=== PATIENT | female | born 1980 | race Caucasian/White ===

== ENCOUNTER 2022-01-03 19:36 | Emergency (ER) | payer OTHER, SELFPAY ==
[2022-01-03 19:45] VITALS: BP 120/77; PULSE 104; RESP 14; TEMP 37.7; O2SAT 99
[2022-01-03 19:57] VITALS: BP 120/77; PULSE 104; RESP 14; TEMP 37.7; O2SAT 99
--- NOTE | 2022-01-03 20:46 | ED.WOUNDLAC ---
HPI - Wound/Laceration General Chief Complaint: Wound/Laceration Stated Complaint: Skin Sore/Fever Time Seen by Provider: 01/03/22 20:14 Source: patient and RN notes reviewed Mode of arrival: ambulatory Limitations: no limitations History of Present Illness HPI narrative: Patient presents today complaining of a 1 week history of a boil to her right buttock that has been worsening since onset. She started running a fever up to 102 2 days ago. Today she noted some serous drainage from a small hole. She has been taking Tylenol for her fever and sitting in some warm sitz bath's as well as using Pred 7 Neosporin. Denies history of boils, abscesses, history of staph infection or MRSA. After some questioning, patient states she has had a small bump in this area for many years. Related Data Home Medications Medication Instructions Recorded Confirmed alprazolam 0.5 mg PO TID 01/03/22 01/03/22 propranolol 10 mg PO TID 01/03/22 01/03/22 sertraline 100 mg PO DAILY 01/03/22 01/03/22 Allergies Allergy/AdvReac Type Severity Reaction Status Date / Time diphenhydramine Allergy Unknown Swelling Unverified 01/03/22 19:56 iodine Allergy Unknown Swelling Unverified 01/03/22 19:56 of Lip/Tongue/Throat Review of Systems Review of Systems: CONSTITUTIONAL: Denies body aches, fever, chills, or sweats. EYES: Denies visual changes, redness, or discharge. ENT: Denies rhinorrhea, congestion, sore throat, or otalgia. CARDIOVASCULAR: Denies chest pain, palpitations, or edema. RESPIRATORY: Denies cough or dyspnea. GASTROINTESTINAL: Denies abdominal pain, nausea, vomiting, or diarrhea. GENITOURINARY: Denies dysuria or hematuria. SKIN: Denies rash, itching, or wounds.+ Abscess to right buttock MUSCULOSKELETAL: Denies back pain, joint pain, or myalgia. NEUROLOGIC: Denies headache, numbness, tingling, or weakness. PSYCH: Denies depression or anxiety. PMFSH Comments At time of signature, I have reviewed and agree with nursing past medical, surgical, social and family history unless otherwise noted. Please see nursing chart for further information. There is no relevant family history pertinent to the presenting complaint Exam Narrative: GENERAL: Well-appearing, well-nourished, and in no acute distress. HEAD: Normocephalic, atraumatic. EYES: EOMI. No redness or drainage. Conjunctivae normal. ENT: Mucous membranes pink and moist. NECK: Normal AROM. CHEST: No respiratory distress. EXTREMITIES: Normal range of motion. No edema. SKIN: Warm, dry, no rash. Capillary refill normal. Normal skin turgor. 3 x 3 cm fluctuant area to the right buttock that is purplish in color, surrounded by approximately 14 cm round area of erythema. Pinpoint area to the center of the fluctuance a scant amount of serous fluid. NEURO: No focal deficits. Alert and oriented x3. Gait steady. PSYCH: Normal affect. No signs of depression or anxiety. Course Course Level of Care: Express Care Visit Vital Signs Vital signs: Vital Signs Temperature 100 F H 01/03/22 19:45 Pulse Rate 104 H 01/03/22 19:45 Respiratory Rate 14 01/03/22 19:45 Blood Pressure 120/77 01/03/22 19:45 Pulse Oximetry 99 01/03/22 19:45 Temperature 100 F H 01/03/22 19:57 Pulse Rate 104 H 01/03/22 19:57 Respiratory Rate 14 01/03/22 19:57 Blood Pressure 120/77 01/03/22 19:57 Pulse Oximetry 99 01/03/22 19:57 Reviewed Procedures Abscess I/D other: Date of Incision: 01/03/22 Time of Incision: 20:30 Side (if applicable): right (Buttock) Local Anesthetic: lidocaine 1% and with epi Amount of anesthesia used (mL): 3 Technique: incised with #11 blade Amount of fluid expressed (mL): 1 Packing used?: plain I&D Results: Pus and Blood Abcess I&D Additional Comments: Dressed with large Band-Aid. Patient tolerated procedure well. MDM - Wound/Laceration Differential Diagnosis Differential diagnosis: Lik
== END 2022-01-03 20:52 | disposition home or self-care (01) ==
PROVIDERS: Emergency Provider Nurse Practitioner; PCP Physician Assistant
DX: L02.31 Cutaneous abscess of buttock (principal); L03.317 Cellulitis of buttock; F41.9 Anxiety disorder, unspecified; Z85.828 Personal history of other malignant neoplasm of skin
CPT/HCPCS: 10061; 87070; 87205; 99203; G0463

== ENCOUNTER 2022-06-11 15:22 | Emergency (ER) | payer OTHER, SELFPAY ==
[2022-06-11 15:32] VITALS: BP 125/76; PULSE 80; RESP 20; TEMP 37.1; O2SAT 100
--- NOTE | 2022-06-11 16:00 | ED.NAVMDI ---
HPI - Nausea/Vomiting/Diarrhea General Chief complaint: Nausea/Vomiting/Diarrhea Stated complaint: Diarrhea Time Seen by Provider: 06/11/22 16:01 Source: patient and RN notes reviewed Mode of arrival: ambulatory Limitations: no limitations History of Present Illness HPI Narrative: 41 y/o female presented for c/o watery diarrhea for 2 months. Denies associated abdominal pain, nausea, vomiting, hematochezia, melena. Endorses appetite is okay. She states anytime she eats or drinks she has to go to the bathroom. She states the onset was after stopping an herbal tea supplement. Has not adjusted diet. Has taken imodium occasionally without change. She has not seen pcp for the complaint. She is scheduled for [facility] and would like diarrhea fixed before then. Related Data Home Medications Medication Instructions Recorded Confirmed alprazolam 0.5 mg tablet 0.5 mg PO TID 01/03/22 06/11/22 propranolol 10 mg tablet 10 mg PO TID 01/03/22 06/11/22 Allergies Allergy/AdvReac Type Severity Reaction Status Date / Time diphenhydramine Allergy Unknown Swelling Verified 06/11/22 15:40 iodine Allergy Unknown Swelling Verified 06/11/22 15:40 of Lip/Tongue/Throat Review of Systems Review of Systems: CONSTITUTIONAL: Denies body aches, fever, chills ENT: Denies rhinorrhea, congestion CARDIOVASCULAR: Denies chest pain, palpitations, or edema. RESPIRATORY: Denies cough or dyspnea. GASTROINTESTINAL: Endorses diarrhea. Denies hematochezia, melena, hematemesis GENITOURINARY: Denies dysuria, hematuria, or CVA tenderness. SKIN: Denies rash, itching, or wounds. MUSCULOSKELETAL: Denies back pain, joint pain, or myalgia. NEUROLOGIC: Denies headache, numbness, tingling, or weakness. All systems reviewed & are unremarkable except as noted in HPI and below PMFSH Comments At time of signature, I have reviewed and agree with nursing past medical, surgical, social and family history unless otherwise noted. Please see nursing chart for further information. There is no relevant family history pertinent to the presenting complaint Exam Narrative: GENERAL: Well-appearing EYES: EOMI. Conjunctivae normal. ENT: Mucous membranes pink and moist. CHEST: Clear to auscultation. HEART: Regular rate and rhythm. No murmur appreciated. Normal peripheral pulses. ABDOMEN: abd soft, nondistended, normal active bowel sounds. Nontender abdomen SKIN: Warm, dry, no rash. Capillary refill normal. Normal skin turgor. NEURO: No focal deficits. Alert and oriented x3. Course Course Emergency Course: Patient is aware of diagnosis, understands and agrees to treatment plan. Anticipatory guidance given. Patient agrees to follow-up as directed and is aware of reasons to seek care at the emergency department. Portions of this record may have been created with voice recognition software Level of Care: Express Care Visit Vital Signs Vital signs: Vital Signs Temperature 98.7 F 06/11/22 15:32 Pulse Rate 800 H 06/11/22 15:32 Respiratory Rate 20 06/11/22 15:32 Blood Pressure 125/76 06/11/22 15:32 Pulse Oximetry 100 06/11/22 15:32 Oxygen Delivery Room Air 06/11/22 15:32 Temperature 98.7 F 06/11/22 15:32 Pulse Rate 800 H 06/11/22 15:32 Respiratory Rate 20 06/11/22 15:32 Blood Pressure 125/76 06/11/22 15:32 Pulse Oximetry 100 06/11/22 15:32 Oxygen Delivery Room Air 06/11/22 15:32 MDM - Nausea/Vomiting/Diarrhea MDM Narrative Medical decision making narrative: Advised supportive measures and signs/symptoms to go to the ER. Pt is appropriate for outpt treatment and f/u with pcp for possible stool culture. Differential Diagnosis Differential diagnosis: Likely traveler's diarrhea, gastroenteritis, clostridium difficile infection and dehydration Discharge Plan Discharge Clinical Impression: Diarrhea Patient Disposition: Home, Self-Care Condition: Stable Instructions: Loperamide (By mouth), Acute Diarrhea
== END 2022-06-11 16:21 | disposition home or self-care (01) ==
PROVIDERS: Emergency Provider Nurse Practitioner Family; PCP Physician Assistant
DX: R19.7 Diarrhea, unspecified (principal); F41.9 Anxiety disorder, unspecified
CPT/HCPCS: 99211; G0463

== ENCOUNTER 2022-06-29 14:54 | Emergency (ER) | payer OTHER, SELFPAY ==
[2022-06-29 15:11] VITALS: BP 119/82; PULSE 83; RESP 16; TEMP 36.7; O2SAT 100
--- NOTE | 2022-06-29 15:29 | ED.SKABFB ---
HPI - Skin/Abscess/Foreign Bdy General Chief complaint: Skin/Abscess/Foreign Body Stated complaint: Remove stitch in head Time Seen by Provider: 06/29/22 15:29 Source: patient Mode of arrival: ambulatory Limitations: no limitations History of Present Illness HPI narrative: 41-year-old female presented for suture removal. She endorses Mohs procedure at [facility] 06/14, sutures removed 06/21, from the right sikhism but one suture was missed. She states she contacted [facility] and they advised she could go to urgent care for the suture removal. Denies redness, swelling, or pus to the site. States it is tender. Related Data Home Medications Medication Instructions Recorded Confirmed alprazolam 0.5 mg tablet 0.5 mg PO TID 01/03/22 06/29/22 propranolol 10 mg tablet 10 mg PO TID 01/03/22 06/29/22 sertraline 100 mg tablet 100 mg PO DAILY 06/29/22 06/29/22 Allergies Allergy/AdvReac Type Severity Reaction Status Date / Time diphenhydramine Allergy Unknown Swelling Verified 06/29/22 15:10 iodine Allergy Unknown Swelling Verified 06/29/22 15:10 of Lip/Tongue/Throat Review of Systems Review of Systems: CONSTITUTIONAL: Denies body aches, fever, chills, or sweats. EYES: Denies visual changes, redness, or discharge. CARDIOVASCULAR: Denies chest pain, palpitations, or edema. RESPIRATORY: Denies cough or dyspnea. GASTROINTESTINAL: Denies abdominal pain, nausea, vomiting, or diarrhea. SKIN: suture right sikhism MUSCULOSKELETAL: Denies back pain, joint pain, or myalgia. NEUROLOGIC: Denies headache, numbness, tingling, or weakness. PMFSH Comments At time of signature, I have reviewed and agree with nursing past medical, surgical, social and family history unless otherwise noted. Please see nursing chart for further information. There is no relevant family history pertinent to the presenting complaint Exam Narrative: GENERAL: Well-appearing HEAD: Normocephalic, atraumatic. EYES: conjunctivae clear, and EOMI. ENT: Mucous membranes moist. Oropharynx without edema, erythema or lesions. NECK: Supple. No lymphadenopathy CHEST: Clear to auscultation. HEART: Regular rate and rhythm. SKIN: Warm, dry. One clear suture in place to right sikhism. NEURO: Alert and oriented x3. Course Course Emergency Course: Patient is aware of diagnosis, understands and agrees to treatment plan. Anticipatory guidance given. Patient agrees to follow-up as directed and is aware of reasons to seek care at the emergency department. Portions of this record may have been created with voice recognition software Level of Care: Express Care Visit Vital Signs Vital signs: Vital Signs Temperature 98.1 F 06/29/22 15:11 Pulse Rate 83 06/29/22 15:11 Respiratory Rate 16 06/29/22 15:11 Blood Pressure 119/82 06/29/22 15:11 Pulse Oximetry 100 06/29/22 15:11 Oxygen Delivery Room Air 06/29/22 15:11 Temperature 98.1 F 06/29/22 15:11 Pulse Rate 83 06/29/22 15:11 Respiratory Rate 16 06/29/22 15:11 Blood Pressure 119/82 06/29/22 15:11 Pulse Oximetry 100 06/29/22 15:11 Oxygen Delivery Room Air 06/29/22 15:11 Reviewed Procedures Other Procedure Procedure 1: Other Procedure: One clear suture removed from right sikhism without difficulty. No apparent infection/induration. Pt tolerated well. MDM - Skin/Abscess/Foreign Bdy MDM Narrative Medical decision making narrative: Instructed patient to go to nearest ER immediately for any worsening symptoms including but not limited to: fever, spreading rash, pain, sore throat, headache, dizziness, chest pain, trouble breathing, or any symptoms concerning to the patient. Differential Diagnosis Differential diagnosis: Likely other (suture removal) Discharge Plan Discharge Clinical Impression: Encounter for removal of sutures Patient Disposition: Home, Self-Care Condition: Stable Instructions: Wound Healing and Your Diet (ED) Additional Instructions:
== END 2022-06-29 15:43 | disposition home or self-care (01) ==
PROVIDERS: Emergency Provider Nurse Practitioner Family; PCP Physician Assistant
DX: Z48.02 Encounter for removal of sutures (principal); F41.9 Anxiety disorder, unspecified; Z85.828 Personal history of other malignant neoplasm of skin
CPT/HCPCS: 99211; G0463

== ENCOUNTER 2023-10-07 15:16 | Emergency (ER) | payer OTHER, SELFPAY ==
[2023-10-07 15:24] VITALS: BP 123/87; PULSE 108; RESP 20; TEMP 37.2; O2SAT 100
--- NOTE | 2023-10-07 15:37 | ED.URI ---
HPI - URI/Sore Throat General Chief Complaint: Upper Respiratory Infection Stated Complaint: headache/fever/fatigue/eye Time Seen by Provider: 10/07/23 15:38 History of Present Illness HPI Narrative: 43 y/o female presented for c/o headache, cough, fatigue x3 days. Also left eye swelling, stating it was itchy last night and she woke with the eye swollen today. States she gets eye swelling when she has an allergic reaction, but denies any new foods, meds, soap, or other exposures. had recent illness. Not taking anything for symptoms. Denies lip, tongue, or throat swelling, shortness of breath or wheezing. Related Data Home Medications Medication Instructions Recorded Confirmed alprazolam 0.5 mg tablet 0.5 mg PO TID 01/03/22 06/29/22 propranolol 10 mg tablet 10 mg PO TID 01/03/22 06/29/22 sertraline 100 mg tablet 100 mg PO DAILY 06/29/22 06/29/22 Allergies Allergy/AdvReac Type Severity Reaction Status Date / Time diphenhydramine Allergy Unknown Swelling Verified 06/29/22 15:10 iodine Allergy Unknown Swelling Verified 06/29/22 15:10 of Lip/Tongue/Throat Review of Systems Review of Systems: CONSTITUTIONAL: reports fatigue, Denies body aches, fever, chills, or sweats. EYES: reports swelling left eye Denies visual changes, redness, or discharge. ENT: Denies rhinorrhea, congestion, or otalgia. CARDIOVASCULAR: Denies chest pain, palpitations, or edema. RESPIRATORY: Denies dyspnea. GASTROINTESTINAL: Denies abdominal pain, nausea, vomiting, or diarrhea. SKIN: Denies rash, itching, or wounds. MUSCULOSKELETAL: Denies back pain, joint pain, or myalgia. NEUROLOGIC: reports headache PMFSH Past Medical History Medical History No pertinent past medical history Social History Social History Smoking packs per day: 0.5 Smoking cigarettes per day: 10.0 Smoking status: Current every day smoker Exam Narrative: GENERAL: mildly Ill-appearing, no acute distress. EYES: conjunctivae clear; left periorbital mild swelling with mild erythema, not occluded, no purulent drainage. PERRLA, EOMI ENT: Mucous membranes moist. TM pearly schreiber with normal light reflex bilaterally; no tragal tenderness. Oropharynx erythematous without lesions. No drooling, no hoarseness, no trismus, uvula midline. No tripod positioning, hot potato voice, or soft palate swelling. NECK: Supple. No lymphadenopathy CHEST: Clear to auscultation, breath sounds equal. No respiratory distress, speaks in full sentences. HEART: Regular rate and rhythm. No murmur heard. SKIN: Warm, dry, no rash. NEURO: Alert and oriented x3. Course Course Emergency Course: Patient is aware of diagnosis, understands and agrees to treatment plan. Anticipatory guidance given. Patient agrees to follow-up as directed and is aware of reasons to seek care at the emergency department. Portions of this record may have been created with voice recognition software Level of Care: Express Care Visit Vital Signs Vital signs: Vital Signs Temperature 98.9 F 10/07/23 15:24 Pulse Rate 108 H 10/07/23 15:24 Respiratory Rate 20 10/07/23 15:24 Blood Pressure 123/87 10/07/23 15:24 Pulse Oximetry 100 10/07/23 15:24 Oxygen Delivery Room Air 10/07/23 15:24 Temperature 98.9 F 10/07/23 15:24 Pulse Rate 108 H 10/07/23 15:24 Respiratory Rate 20 10/07/23 15:24 Blood Pressure 123/87 10/07/23 15:24 Pulse Oximetry 100 10/07/23 15:24 Oxygen Delivery Room Air 10/07/23 15:24 MDM - URI/Sore Throat MDM Narrative Medical decision making narrative: Negative flu and COVID. result reviewed with pt. Advise supportive treatments and signs and symptoms to go the ER. Rx pepcid and steroid for the left eye swelling as she reports c/w allergic reaction. Patient is appropriate for outpatient treatment and follow-up. Differenti
== END 2023-10-07 16:10 | disposition home or self-care (01) ==
PROVIDERS: Emergency Provider Nurse Practitioner Family; PCP Physician Assistant
DX: B34.9 Viral infection, unspecified (principal); R22.0 Localized swelling, mass and lump, head; F17.210 Nicotine dependence, cigarettes, uncomplicated
CPT/HCPCS: 87426; 87804; 99213; C9803; G0463